=== PATIENT | female | born 1995 | race Caucasian/White ===

== ENCOUNTER 2021-03-23 08:06 | Day surgery (SDC) | payer BC ==
[~2021-03-23] VITALS: Ht 160 cm; Wt 63.5 kg
[2021-03-23 08:49] LABS: HCG,QUAL RESULT NEGATIVE (NEGATIVE)
[2021-03-23] MEDS ORDERED: SIMETHICONE 40 MG/0.6 ML ML ONE (09:55)
[2021-03-23] MEDS ORDERED: MEPERIDINE 100 MG INJ. 100 MG/ML VIAL ONE (09:55)
[2021-03-23] MEDS ORDERED: MIDAZOLAM HCL 5 MG/5 ML VIAL ONE ×2 (09:55→10:15)
[2021-03-23] MEDS ORDERED: BENZOCAINE 20% 0.5mL UD SPRAY MM ONE (09:58)
[2021-03-23] MEDS ORDERED: DIPHENHYDRAMINE INJ 50 MG/ML VIAL ONE (10:05)
[2021-03-23 12:44] VITALS: BP_SYST 106
== END 2021-03-23 11:11 | disposition home or self-care (01) ==
LOC: SDS 08:06 → SMU 08:10 → SDS 11:11
PROVIDERS: ATTEND Internal Medicine
DX: R19.4 Change in bowel habit (principal); R10.13 Epigastric pain; K29.70 Gastritis, unspecified, without bleeding; K64.8 Other hemorrhoids; Z79.899 Other long term (current) drug therapy
CPT/HCPCS: 43239; 45380; 84703; 88305; 88312; 88313; 99152; 99153; G0378; J2175; J2250; J1200